=== PATIENT | female | born 1935 | race Caucasian/White ===

== ENCOUNTER 2017-10-20 11:21 | Inpatient (IN) | payer MEDICARE, OTHER ==
--- NOTE | 2017-10-20 11:45 | ER Document Report ---
ED General - General Chief Complaint: Breathing Difficulty Stated Complaint: DIFFICULTY BREATHING Time Seen by Provider: 10/20/17 11:44 Notes: Patient is a 82-year-old female who presents emergency department with a chief complaint of shortness of breath, cough and wheezing since Wednesday. Presents from [facility] urgent care where she had 2 duo nebs, she was ambulated and dropped to 78%. she denies any fevers or chills, denies any chest pain, chest tightness. She denies any history of asthma, COPD, bronchitis. She does have a history of congestive heart failure, hypertension, hyperlipidemia, hypothyroidism. Follows with Dr. Fraser, primary care is Dr. Cordoba. TRAVEL OUTSIDE OF THE [place] IN LAST 30 DAYS: No - Related Data Allergies/Adverse Reactions: rofecoxib [From Vioxx] Allergy (Severe, Verified 10/20/17 11:31) congestive heart failure prednisone [Prednisone] Allergy (Verified 10/20/17 11:31) Past Medical History - Social History Smoking Status: Never Smoker Family History: Reviewed & Not Pertinent - Past Medical History Cardiac Medical History: Reports: Hx Congestive Heart Failure, Hx Hypercholesterolemia, Hx Hypertension - Immunizations Hx Diphtheria, Pertussis, Tetanus Vaccination: Yes Review of Systems - Review of Systems Constitutional: Malaise Cardiovascular: No symptoms reported Respiratory: See HPI Gastrointestinal: No symptoms reported Musculoskeletal: No symptoms reported. denies: Leg swelling, Ankle swelling Neurological/Psychological: No symptoms reported -: Yes All other systems reviewed and negative Physical Exam - Vital signs Vitals: Temp Pulse Resp BP Pulse Ox 99.9 F 85 24 H 124/69 88 L 10/20/17 11:36 10/20/17 11:36 10/20/17 11:36 10/20/17 11:36 10/20/17 11:36 - Notes Notes: PHYSICAL EXAM GENERAL: Alert, interacts well. HEAD: Normocephalic, atraumatic. EYES: Pupils equal, round, and reactive to light. Extraocular movements intact. ENT: Oral mucosa moist, tongue midline. NECK: Full range of motion. Supple. Trachea midline. LUNGS: Diffuse wheezes and rhonchi worse at the left base without evidence of rales. No respiratory distress. HEART: Regular rate and rhythm. No murmurs, gallops, or rubs. ABDOMEN: Soft, nondistended, nontender. No guarding, rebound, or rigidity.. Bowel sounds present in all 4 quadrants. EXTREMITIES: Moves all 4 extremities spontaneously. No edema, radial and dorsalis pedis pulses 2/4 bilaterally. No cyanosis. NEUROLOGICAL: Alert and oriented x4. Normal speech. PSYCH: Normal affect, normal mood. SKIN: Warm, dry, normal turgor. No rashes or lesions noted. Course - Re-evaluation Re-evalutation: 10/20/17 13:15 Patient is an 82-year-old female who is hemodynamically stable, no acute distress and afebrile. Presentation is consistent with pneumonia versus acute respiratory failure due to viral syndrome. Patient to receive nebulizers, IV Solu-Medrol and IV Levaquin and will reassess 10/20/17 14:59 Patient has received multiple DuoNeb nebs as well as Solu-Medrol in the department. She has been ambulated with desaturation to 86% on room air. Patient will be admitted for acute respiratory failure with hypoxia secondary to viral syndrome. Patient has been accepted by Dr. Sarabia to inpatient telemetry - Vital Signs Vital signs: Temp Pulse Resp BP Pulse Ox 99.3 F 85 24 H 124/69 88 L 10/20/17 13:11 10/20/17 11:36 10/20/17 11:36 10/20/17 11:36 10/20/17 11:36 - Laboratory Result Diagrams: 10/20/17 11:48 10/20/17 11:48 Laboratory results interpreted by me: 10/20/17 10/20/17 10/20/17 11:48 11:48 11:48 RBC 3.42 L Hgb 11.0 L Hct 32.2 L Seg Neutrophils % 39.7 L Potassium 3.3 L Chloride 97 L BUN 26 H Est GFR (Non-Af Amer) 57 L AST 40 H NT-Pro-B Natriuret Pep 650 H Urine Protein 10/20/17 12:46 RBC Hgb Hct Seg Neutrophils % Potassium Chloride BUN Est GFR (Non-Af Amer) AST NT-Pro-B Natriuret Pep Urine Protein 30 H - Diagnostic Test Radiology reviewed: Image reviewed, Reports reviewed - EKG Interpretation by Me EKG shows normal: Sinus rhythm Rate: Normal Rhythm: NSR When compared to previous EKG there are: Previous EKG unavailable Discharge - Discharge Clinical Impression: Acute respiratory distress, Viral syndrome, Hypoxia Condition: Stable Disposition: ADMITTED INPATIENT Admitting Provider: Hospitalist - [facility] Admitted: Telemetry
[2017-10-20 12:17] LABS: ABSOLUTE EOSINOPHILS # (AUTO) 0.1 10^3/uL (0.0-0.6); ABSOLUTE LYMPHOCYTES (AUTO) 1.9 10^3/uL (0.5-4.7); ABSOLUTE MONOCYTES (AUTO) 0.6 10^3/uL (0.1-1.4); ABSOLUTE NEUT (AUTO) 1.8 10^3/uL (1.7-8.2); BASOPHILS % (AUTO) 0.6 % (0-2); EOSINOPHILS % (AUTO) 3.1 % (0-6); HEMATOCRIT 32.2 % (36.0-47.0); LYMPHOCYTES % (AUTO) 43.6 % (13-45); MEAN CORPUSCULAR HEMOGLOBIN 32.2 pg (27.0-33.4); MEAN CORPUSCULAR HGB CONC 34.3 g/dL (32.0-36.0); MEAN CORPUSCULAR VOLUME 94 fl (80-97); PLATELET COUNT 175 10^3/uL (150-450); RED BLOOD COUNT 3.42 10^6/uL (3.72-5.28); RED CELL DISTRIBUTION WIDTH 13.8 % (11.5-14.0); SEGMENTED NEUTROPHILS % (AUTO) 39.7 % (42-78); TOTAL CELLS COUNTED % (AUTO) 100 %; WHITE BLOOD COUNT 4.4 10^3/uL (4.0-10.5)
[2017-10-20 12:35] LABS: ALANINE AMINOTRANSFERASE 30 U/L (9-52); ALKALINE PHOSPHATASE 48 U/L (38-126); ANION GAP 12 (5-19); ASPARTATE AMINO TRANSFERASE 40 U/L (14-36); BILIRUBIN,DIRECT 0.4 mg/dL (0.0-0.4); BILIRUBIN,TOTAL 0.4 mg/dL (0.2-1.3); BLOOD UREA NITROGEN 26 mg/dL (7-20); CALCIUM 9.3 mg/dL (8.4-10.2); CARBON DIOXIDE 29 mmol/L (22-30); CHLORIDE 97 mmol/L (98-107); CREATINE KINASE 74 U/L (30-135); GLUCOSE 97 mg/dL (75-110); POTASSIUM 3.3 mmol/L (3.6-5.0); SODIUM 138.2 mmol/L (137-145)
--- NOTE | 2017-10-20 12:41 | RADIOLOGY REPORT (SQ) ---
EXAM DESCRIPTION: CHEST SINGLE VIEW COMPLETED DATE/TIME: 10/20/2017 12:31 pm REASON FOR STUDY: SOB, h/o CHF COMPARISON: August 2011 EXAM PARAMETERS: NUMBER OF VIEWS: One view. TECHNIQUE: Single frontal radiographic view of the chest acquired. RADIATION DOSE: NA LIMITATIONS: Patient has made a shallow inspiration FINDINGS: LUNGS AND PLEURA: Linear densities are identified in the lung bases left greater than righ t which could represent subsegmental atelectasis or scarring. Remaining lung galo are clear. No p leural effusions are identified. MEDIASTINUM AND HILAR STRUCTURES: No masses. Contour normal. HEART AND VASCULAR STRUCTURES: Cardiac silhouette remains enlarged. Tortuous thoracic aorta is again identified. BONES: No acute findings. HARDWARE: None in the chest. OTHER: No other significant finding. IMPRESSION: Linear densities in the lung bases left greater than right which could represent atelect atic changes or scarring. Remaining lung galo are clear. No pleural effusions are identified. Ot her findings as noted above TECHNICAL DOCUMENTATION: JOB ID: [id number] [employer]- All Rights Reserved
[2017-10-20 12:58] LABS: CREATINE KINASE MB 0.45 ng/mL (<4.55); TROPONIN I 0.017 ng/mL
[2017-10-20 13:01] LABS: APPEARANCE,URINE SLIGHTLY-CLOUDY; BILIRUBIN,URINE NEGATIVE (NEGATIVE); COLOR,URINE YELLOW; GLUCOSE, URINE NEGATIVE (NEGATIVE); KETONES,URINE NEGATIVE (NEGATIVE); LEUKOCYTE ESTERASE,URINE NEGATIVE (NEGATIVE); NITRITE,URINE NEGATIVE (NEGATIVE); PROTEIN,URINE 30 mg/dL (NEGATIVE); UROBILINOGEN,URINE NEGATIVE mg/dL (<2.0)
[2017-10-20] MEDS ORDERED: IPRATROPIUM/ALBUTEROL 0.5-2.5 MG/3 ML AMPUL NEB ONE (13:06)
[2017-10-20] MEDS ORDERED: METHYLPREDNISOLONE INJ 125 MG/2 ML SDV IV ONE (13:06)
[2017-10-20] MEDS: ALBUTEROL SULFATE 0.083% NEB 2.5 MG/3 ML AMPUL NEB SCH ×2 (13:12→13:59)
[2017-10-20] MEDS ORDERED: LEVOFLOXACIN 750 MG/D5W RTU 750 MG/150 ML RTUPB IV ONE (13:13)
[2017-10-20] MEDS ORDERED: LEVALBUTEROL HCL NEB 1.25 MG/3 ML AMPUL NEB ONE (14:59)
[2017-10-20] MEDS ORDERED: ACETAMINOPHEN 325 MG TABLET PO PRN (15:00)
[2017-10-20] MEDS ORDERED: ZOLPIDEM TARTRATE 5 MG TABLET PO PRN (15:00)
[2017-10-20] MEDS ORDERED: OXYCODONE-ACETAMINOPHEN 5-325 MG TABLET PO PRN (15:00)
[2017-10-20] MEDS ORDERED: ONDANSETRON HCL INJ/PF 4 MG/2 ML SDV IV PRN (15:00)
[2017-10-20] MEDS ORDERED: HYDROCODONE BIT/HOMATROPINE 5-1.5 MG TABLET PO PRN (15:05)
[2017-10-20] MEDS ORDERED: BENZONATATE 100 MG CAPSULE PO PRN (15:06)
--- NOTE | 2017-10-20 16:00 | PDOC H&P ---
History of Present Illness Admission Date/PCP: TAMARA ROD MD Patient complains of: Cough since Wednesday History of Present Illness: NARA RIVERA is a 82 year old femalePresents to emergency room accompanied by her daughter and complains of having for the most part nonproductive cough which started on Wednesday. Patient states that she took [id number] medications with not much relief. In addition she has been experiencing shortness of breath and pain on her stomach due to the cough. Patient states that she took the flu vaccine and had taken the pneumonia shot. When she was evaluated in the emergency room she was saturating 84% at room air requiring oxygen supplementation. Due to presentation the hospitalist service was contacted and prompted to admit for further management Past Medical History Cardiac Medical History: Reports: Congestive Heart Failure, Hyperlipidema, Hypertension Pulmonary Medical History: Reports: None EENT Medical History: Reports: Other - macular degeneration Neurological Medical History: Reports: None Endocrine Medical History: Reports: None Renal/ Medical History: Reports: None Malignancy Medical History: Reports: None GI Medical History: Reports: None Musculoskeltal Medical History: Reports: None Skin Medical History: Reports: None Psychiatric Medical History: Reports: None Traumatic Medical History: Reports: None Hematology: Reports: None Infectious Medical History: Reports: None Past Surgical History Past Surgical History: Reports: Appendectomy, Knee Replacement, Orthopedic Surgery Social History Information Source: Patient Lives with: Alone Smoking Status: Never Smoker Frequency of Alcohol Use: None Hx Recreational Drug Use: No Drugs: None Hx Prescription Drug Abuse: No Family History Family History: DM Parental Family History Reviewed: Yes Children Family History Reviewed: Yes Sibling(s) Family History Reviewed.: Yes Medication/Allergy Allergies/Adverse Reactions: rofecoxib [From Vioxx] Allergy (Severe, Verified 10/20/17 11:31) congestive heart failure prednisone [Prednisone] Allergy (Verified 10/20/17 11:31) Review of Systems Constitutional: ABSENT: chills, fever(s), night sweats Eyes: ABSENT: visual disturbances Ears: ABSENT: hearing changes Cardiovascular: PRESENT: chest pain, dyspnea on exertion. ABSENT: palpitations Respiratory: PRESENT: cough, dyspnea Gastrointestinal: PRESENT: abdominal pain. ABSENT: nausea, vomiting Musculoskeletal: PRESENT: joint swelling Physical Exam Vital Signs: Temp Pulse Resp BP Pulse Ox 99.3 F 85 24 H 124/69 88 L 10/20/17 13:11 10/20/17 11:36 10/20/17 11:36 10/20/17 11:36 10/20/17 11:36 Intake & Output 10/19/17 10/20/17 10/21/17 06:59 06:59 06:59 Weight 70.6 kg General appearance: PRESENT: cooperative, mild distress, obese Head exam: PRESENT: atraumatic, normocephalic Eye exam: PRESENT: conjunctiva pink, EOMI, PERRLA Mouth exam: PRESENT: moist Neck exam: PRESENT: full ROM. ABSENT: JVD, lymphadenopathy, tenderness Respiratory exam: PRESENT: decreased breath sounds, wheezes Cardiovascular exam: PRESENT: RRR. ABSENT: diastolic murmur, systolic murmur Vascular exam: PRESENT: normal capillary refill GI/Abdominal exam: PRESENT: normal bowel sounds, soft. ABSENT: tenderness Extremities exam: PRESENT: +2 edema Musculoskeletal exam: PRESENT: ambulatory Neurological exam: PRESENT: alert, awake, oriented to person, oriented to place , oriented to time, oriented to situation, CN II-XII grossly intact Psychiatric exam: PRESENT: appropriate affect, normal mood Skin exam: PRESENT: intact, normal color Results Laboratory Results: 10/20/17 11:48 10/20/17 11:48 10/20/17 10/20/17 10/20/17 11:48 11:48 12:46 WBC 4.4 RBC 3.42 L Hgb 11.0 L Hct 32.2 L MCV 94 MCH 32.2 MCHC 34.3 RDW 13.8 Plt Count 175 Seg Neutrophils % 39.7 L Lymphocytes % 43.6 Monocytes % 13.0 Eosinophils % 3.1 Basophils % 0.6 Absolute Neutrophils 1.8 Absolute Lymphocytes 1.9 Absolute Monocytes 0.6 Absolute Eosinophils 0.1 Absolute Basophils 0.0 Sodium 138.2 Potassium 3.3 L Chloride 97 L Carbon Dioxide 29 Anion Gap 12 BUN 26 H Creatinine 0.94 Est GFR ( Amer) > 60 Est GFR (Non-Af Amer) 57 L Glucose 97 Calcium 9.3 Total Bilirubin 0.4 AST 40 H ALT 30 Alkaline Phosphatase 48 Total Protein 7.0 Albumin 4.0 Urine Color YELLOW Urine Appearance SLIGHTLY-CLOUDY Urine pH 8.0 Ur Specific [place] 1.010 Urine Protein 30 H Urine Glucose (UA) NEGATIVE Urine Ketones NEGATIVE Urine Blood NEGATIVE Urine Nitrite NEGATIVE Ur Leukocyte Esterase NEGATIVE Urine WBC (Auto) 3 Urine RBC (Auto) 1 10/20/17 10/20/17 11:48 11:48 Creatine Kinase 74 CK-MB (CK-2) 0.45 Troponin I 0.017 NT-Pro-B Natriuret Pep 650 H Impressions: Chest X-Ray 10/20/17 11:55 IMPRESSION: Linear densities in the lung bases left greater than right which could represent atelectatic changes or scarring. Remaining lung galo are clear. No pleural effusions are identified. Other findings as noted above Assessment & Plan - Diagnosis (1) Acute respiratory failure Qualifiers: Respiratory failure complication: hypoxia Qualified Code(s): J96.01 - Acute respiratory failure with hypoxia Is this a current diagnosis for this admission?: Yes Plan: Will supplement oxygen and will wean off as tolerated will request incentive spirometer (2) Elevated brain natriuretic peptide (BNP) level Is this a current diagnosis for this admission?: Yes Plan: BNP is mildly elevated however due to history of congestive heart failure will order a one-time dose of Lasix IV. Patient also suffers from chronic leg swelling and on the overall does not look to be fluid overloaded but probably suspect elevated longstanding pulmonary pressures (3) Viral syndrome Is this a current diagnosis for this admission?: Yes Plan: Patient will be placed on DuoNeb's, due to C. difficile and Tamiflu (4) Hypokalemia Is this a current diagnosis for this admission?: Yes Plan: Will replace orally and trend - Time Time Spent: 50 to 70 Minutes Medications reviewed and adjusted accordingly: Yes Anticipated discharge: Home Within: within 48 hours - Inpatient Certification Based on my medical assessment, after consideration of the patient's comorbidities, presenting symptoms, or acuity I expect that the services needed warrant INPATIENT care.: Yes I certify that my determination is in accordance with my understanding of Medicare's requirements for reasonable and necessary INPATIENT services [42 CFR 412.3e].: Yes Medical Necessity: Need Close Monitoring Due to Risk of Patient Decompensation - Oxygen supplementation
[2017-10-20] MEDS ORDERED: POTASSIUM CHLORIDE 10 MEQ TABLET.SA PO ONE (17:00)
[2017-10-20] MEDS ORDERED: FUROSEMIDE INJ/PF 20 MG/2 ML SDV IV ONE (17:00)
[2017-10-20] MEDS: OSELTAMIVIR PHOSPHATE 75 MG CAPSULE PO SCH (17:14)
[2017-10-20 17:44] LABS: ARTERIAL BLOOD BASE EXCESS 2.4 mmol/L; ARTERIAL BLOOD FIO2 2L; ARTERIAL BLOOD H2CO3 1.15 mmol/L (1.05-1.35); ARTERIAL BLOOD HCO3 26.3 mmol/L (20-26); ARTERIAL BLOOD O2 SATURATION 90.3 % (94-98); ARTERIAL BLOOD PCO2 38.3 mmHg (35-45); ARTERIAL BLOOD PH 7.46 (7.35-7.45); ARTERIAL BLOOD PO2 55.2 mmHg (80-100); ARTERIAL BLOOD TOTAL CO2 27.5 mmol/L (21-25)
[2017-10-20] MEDS: IPRATROPIUM/ALBUTEROL 0.5-2.5 MG/3 ML AMPUL NEB SCH ×3 (20:00→22:07)
[2017-10-20] MEDS: ALBUTEROL SULFATE 0.083% NEB 2.5 MG/3 ML AMPUL NEB PRN (20:09)
--- NOTE | 2017-10-20 21:23 | EKG REPORT ---
SEVERITY:- ABNORMAL ECG - SINUS RHYTHM VENTRICULAR PREMATURE COMPLEX LEFT BUNDLE BRANCH BLOCK : Confirmed by: Paul Ely 20-Oct-2017 21:22:26
[2017-10-21] MEDS ORDERED: HYDROCODONE/ACETAMINOPHEN 5-325 MG TABLET PO PRN (00:03)
[2017-10-21] MEDS: HEPARIN SOD (PORCINE) 5,000 UNIT/ML 1 ML SYRINGE SUBCUT SCH ×4 (00:39→21:52)
[2017-10-21] MEDS: ZOLPIDEM TARTRATE 5 MG TABLET PO PRN ×2 (01:07→22:10)
[2017-10-21] MEDS: ALBUTEROL SULFATE 0.083% NEB 2.5 MG/3 ML AMPUL NEB PRN (01:27)
[2017-10-21 07:19] LABS: ABSOLUTE MONOCYTES (AUTO) 0.4 10^3/uL (0.1-1.4); ABSOLUTE NEUT (AUTO) 2.5 10^3/uL (1.7-8.2); BASOPHILS % (AUTO) 0.1 % (0-2); HEMATOCRIT 30.1 % (36.0-47.0); HEMOGLOBIN 10.8 g/dL (12.0-15.5); LYMPHOCYTES % (AUTO) 24.7 % (13-45); MEAN CORPUSCULAR HEMOGLOBIN 33.2 pg (27.0-33.4); MEAN CORPUSCULAR HGB CONC 35.8 g/dL (32.0-36.0); MEAN CORPUSCULAR VOLUME 93 fl (80-97); MONOCYTES % (AUTO) 9.6 % (3-13); PLATELET COUNT 173 10^3/uL (150-450); RED BLOOD COUNT 3.24 10^6/uL (3.72-5.28); RED CELL DISTRIBUTION WIDTH 13.6 % (11.5-14.0); SEGMENTED NEUTROPHILS % (AUTO) 65.6 % (42-78); TOTAL CELLS COUNTED % (AUTO) 100 %; WHITE BLOOD COUNT 3.8 10^3/uL (4.0-10.5)
[2017-10-21 07:39] LABS: ANION GAP 14 (5-19); BLOOD UREA NITROGEN 27 mg/dL (7-20); CALCIUM 9.3 mg/dL (8.4-10.2); CARBON DIOXIDE 27 mmol/L (22-30); CHLORIDE 97 mmol/L (98-107); GLUCOSE 206 mg/dL (75-110); MAGNESIUM 1.6 mg/dL (1.6-2.3); POTASSIUM 3.7 mmol/L (3.6-5.0)
[2017-10-21] MEDS ORDERED: BISOPROLOL PO SCH (08:00)
[2017-10-21] MEDS ORDERED: HYDROCHLOROTHIAZIDE PO SCH (08:00)
[2017-10-21] MEDS ORDERED: IPRATROPIUM/ALBUTEROL 0.5-2.5 MG/3 ML AMPUL NEB ONE (09:30)
[2017-10-21] MEDS: HYDROCHLOROTHIAZIDE 25 MG TABLET PO SCH (09:55)
[2017-10-21] MEDS: ATENOLOL 50 MG TABLET PO SCH (09:56)
[2017-10-21] MEDS: DOCUSATE SODIUM 100 MG CAPSULE PO SCH (09:56)
[2017-10-21] MEDS: LEVOTHYROXINE SODIUM 0.025 MG TABLET PO SCH (09:56)
[2017-10-21] MEDS: IPRATROPIUM/ALBUTEROL 0.5-2.5 MG/3 ML AMPUL NEB SCH ×2 (13:48→19:54)
[2017-10-21] MEDS ORDERED: FUROSEMIDE INJ/PF 20 MG/2 ML SDV IV ONE (15:00)
[2017-10-21] MEDS: ATORVASTATIN CALCIUM 80 MG TABLET PO SCH (18:05)
[2017-10-21] MEDS: LISINOPRIL 10 MG TABLET PO SCH (18:05)
[2017-10-21] MEDS: OSELTAMIVIR PHOSPHATE 75 MG CAPSULE PO SCH (18:05)
--- NOTE | 2017-10-21 18:41 | PDOC PROGRESS REPORT ---
Subjective Progress Note for:: 10/21/17 Subjective:: Patient relates that still having shortness of breath and cough. Was not able to sleep last night Review of systems All organ systems evaluated and negative except as in subjective All laboratories and significant diagnostics have been reviewed Reason For Visit: ACUTE RESPIRATORY FAILURE,VIRAL SYNDROME Physical Exam Vital Signs: Temp Pulse Resp BP Pulse Ox 98.6 F 88 18 139/56 H 95 10/21/17 04:00 10/21/17 04:00 10/21/17 04:00 10/21/17 04:00 10/21/17 04:00 Intake & Output 10/20/17 10/21/17 10/22/17 06:59 06:59 06:59 Intake Total 268 Balance 268 Weight 70.1 kg General appearance: PRESENT: no acute distress, cooperative, obese Head exam: PRESENT: atraumatic, normocephalic Eye exam: PRESENT: conjunctiva pink, EOMI, PERRLA Mouth exam: PRESENT: moist Neck exam: PRESENT: full ROM. ABSENT: JVD, lymphadenopathy Respiratory exam: PRESENT: crackles, wheezes Cardiovascular exam: PRESENT: RRR. ABSENT: diastolic murmur, systolic murmur Vascular exam: PRESENT: normal capillary refill GI/Abdominal exam: PRESENT: normal bowel sounds, soft. ABSENT: tenderness Extremities exam: PRESENT: full ROM, +1 edema Musculoskeletal exam: PRESENT: ambulatory Neurological exam: PRESENT: alert, awake, oriented to person, oriented to place , oriented to time, oriented to situation, CN II-XII grossly intact Psychiatric exam: PRESENT: appropriate affect, normal mood Skin exam: PRESENT: intact, normal color Results Laboratory Results: 10/21/17 06:37 10/20/17 10/21/17 16:25 06:37 WBC 3.8 L RBC 3.24 L Hgb 10.8 L Hct 30.1 L MCV 93 MCH 33.2 MCHC 35.8 RDW 13.6 Plt Count 173 Seg Neutrophils % 65.6 Lymphocytes % 24.7 Monocytes % 9.6 Eosinophils % 0.0 Basophils % 0.1 Absolute Neutrophils 2.5 Absolute Lymphocytes 1.0 Absolute Monocytes 0.4 Absolute Eosinophils 0.0 Absolute Basophils 0.0 Carbonic Acid 1.15 HCO3/H2CO3 Ratio 22:1 ABG pH 7.46 H ABG pCO2 38.3 ABG pO2 55.2 L ABG HCO3 26.3 H ABG O2 Saturation 90.3 L ABG Base Excess 2.4 FiO2 2L Impressions: Chest X-Ray 10/20/17 11:55 IMPRESSION: Linear densities in the lung bases left greater than right which could represent atelectatic changes or scarring. Remaining lung galo are clear. No pleural effusions are identified. Other findings as noted above Assessment & Plan - Diagnosis (1) Acute respiratory failure Qualifiers: Respiratory failure complication: hypoxia Qualified Code(s): J96.01 - Acute respiratory failure with hypoxia Is this a current diagnosis for this admission?: Yes Plan: continue oxygen and will wean off as tolerated. Will request again incentive spirometer (2) Elevated brain natriuretic peptide (BNP) level Is this a current diagnosis for this admission?: Yes Plan: BNP is mildly elevated. Will place on Lasix IV twice a day and order an echocardiogram (3) Viral syndrome Is this a current diagnosis for this admission?: Yes Plan: Continue Tamiflu and nebulizer treatments. (4) Hypokalemia Is this a current diagnosis for this admission?: Yes Plan: Replaced and trend since will be getting Lasix IV - Time Time Spent with patient: 15-24 minutes Medications reviewed and adjusted accordingly: Yes Anticipated discharge: Home Within: within 72 hours - Inpatient Certification Based on my medical assessment, after consideration of the patient's comorbidities, presenting symptoms, or acuity I expect that the services needed warrant INPATIENT care.: Yes I certify that my determination is in accordance with my understanding of Medicare's requirements for reasonable and necessary INPATIENT services [42 CFR 412.3e].: Yes Medical Necessity: Need Close Monitoring Due to Risk of Patient Decompensation, Need For Continuous Telemetry Monitoring - IV Lasix
[2017-10-21] MEDS: OLANZAPINE 2.5 MG TABLET PO SCH (21:51)
[2017-10-21] MEDS: FUROSEMIDE INJ/PF 20 MG/2 ML SDV IV SCH (21:51)
[2017-10-21] MEDS: LATANOPROST 0.005% OPH SOLN 2.5 ML OU SCH (21:52)
[2017-10-22] MEDS: LEVOTHYROXINE SODIUM 0.025 MG TABLET PO SCH (06:54)
[2017-10-22 07:52] LABS: ANION GAP 9 (5-19); BLOOD UREA NITROGEN 37 mg/dL (7-20); CALCIUM 9.2 mg/dL (8.4-10.2); CARBON DIOXIDE 33 mmol/L (22-30); CHLORIDE 98 mmol/L (98-107); GLUCOSE 114 mg/dL (75-110); MAGNESIUM 1.7 mg/dL (1.6-2.3); POTASSIUM 3.6 mmol/L (3.6-5.0); SODIUM 139.8 mmol/L (137-145)
[2017-10-22] MEDS: HEPARIN SOD (PORCINE) 5,000 UNIT/ML 1 ML SYRINGE SUBCUT SCH ×3 (09:12→21:48)
[2017-10-22] MEDS: HYDROCHLOROTHIAZIDE 25 MG TABLET PO SCH (09:13)
[2017-10-22] MEDS: ATENOLOL 50 MG TABLET PO SCH (09:13)
[2017-10-22] MEDS: IPRATROPIUM/ALBUTEROL 0.5-2.5 MG/3 ML AMPUL NEB SCH ×3 (09:14→19:37)
[2017-10-22] MEDS: DOCUSATE SODIUM 100 MG CAPSULE PO SCH (10:04)
[2017-10-22] MEDS: FUROSEMIDE INJ/PF 20 MG/2 ML SDV IV SCH (10:04)
[2017-10-22] MEDS: OSELTAMIVIR PHOSPHATE 75 MG CAPSULE PO SCH (17:35)
[2017-10-22] MEDS: ATORVASTATIN CALCIUM 80 MG TABLET PO SCH (17:35)
--- NOTE | 2017-10-22 18:06 | PDOC PROGRESS REPORT ---
Subjective Progress Note for:: 10/22/17 Subjective:: Patient reports that her breathing is getting better Review of systems All organ systems evaluated and negative except as in subjective All laboratories and significant diagnostics have been reviewed Reason For Visit: ACUTE RESPIRATORY FAILURE,VIRAL SYNDROME Physical Exam Vital Signs: Temp Pulse Resp BP Pulse Ox 97.3 F 68 16 110/67 94 10/22/17 08:19 10/22/17 09:14 10/22/17 09:14 10/22/17 08:19 10/22/17 09:14 Intake & Output 10/21/17 10/22/17 10/23/17 06:59 06:59 06:59 Intake Total 268 118 Balance 268 118 Weight 70.1 kg 92.5 kg General appearance: PRESENT: cooperative, severe distress Head exam: PRESENT: atraumatic, normocephalic Eye exam: PRESENT: conjunctiva pink, EOMI, PERRLA Ear exam: PRESENT: normal external ear exam, TM's normal bilaterally Mouth exam: PRESENT: moist Neck exam: PRESENT: full ROM. ABSENT: JVD Respiratory exam: ABSENT: tachypnea, unlabored Cardiovascular exam: PRESENT: RRR. ABSENT: diastolic murmur, systolic murmur Vascular exam: PRESENT: normal capillary refill GI/Abdominal exam: PRESENT: normal bowel sounds, soft. ABSENT: tenderness Extremities exam: PRESENT: full ROM, +1 edema Musculoskeletal exam: PRESENT: ambulatory Neurological exam: PRESENT: alert, awake, oriented to person, oriented to place , oriented to time, oriented to situation, CN II-XII grossly intact Psychiatric exam: PRESENT: appropriate affect, normal mood Skin exam: PRESENT: intact, normal color Results Laboratory Results: 10/21/17 06:37 10/22/17 07:19 10/22/17 07:19 Sodium 139.8 Potassium 3.6 Chloride 98 Carbon Dioxide 33 H Anion Gap 9 BUN 37 H Creatinine 1.33 H Est GFR ( Amer) 46 L Est GFR (Non-Af Amer) 38 L Glucose 114 H Calcium 9.2 Magnesium 1.7 Impressions: Chest X-Ray 10/20/17 11:55 IMPRESSION: Linear densities in the lung bases left greater than right which could represent atelectatic changes or scarring. Remaining lung galo are clear. No pleural effusions are identified. Other findings as noted above Assessment & Plan - Diagnosis (1) Acute respiratory failure Qualifiers: Respiratory failure complication: hypoxia Qualified Code(s): J96.01 - Acute respiratory failure with hypoxia Is this a current diagnosis for this admission?: Yes Plan: There is advised to wean patient off oxygen (2) Elevated brain natriuretic peptide (BNP) level Is this a current diagnosis for this admission?: Yes Plan: BNP is mildly elevated. Echocardiogram results still pending. Will discontinue Lasix since she has mild increase in renal function (3) Viral syndrome Is this a current diagnosis for this admission?: Yes Plan: Continue Tamiflu and nebulizer treatments. (4) Hypokalemia Is this a current diagnosis for this admission?: Yes Plan: Replaced - Time Time Spent with patient: 15-24 minutes Medications reviewed and adjusted accordingly: Yes Anticipated discharge: Home Within: within 24 hours - Inpatient Certification Based on my medical assessment, after consideration of the patient's comorbidities, presenting symptoms, or acuity I expect that the services needed warrant INPATIENT care.: Yes I certify that my determination is in accordance with my understanding of Medicare's requirements for reasonable and necessary INPATIENT services [42 CFR 412.3e].: Yes Medical Necessity: Need Close Monitoring Due to Risk of Patient Decompensation, Need for Nebulizer Therapy and Monitoring of Response
--- NOTE | 2017-10-22 18:18 | XCELERA REPORT ---
[address] [address] Transthoracic Echocardiogram Report Name: NARA RIVERA Age: 82 yrs Gender: Female : 1935 Patient Status: Inpatient Patient Location: [address] [place] [address] Study Date: 10/22/2017 03:28 PM Height: 60 in Weight: 154 lb BSA: 1.7 m2 Procedure: A complete two-dimensional transthoracic echocardiogram was performed (2D, M-mode, spectral and color flow Doppler). The study was technically difficult with many images being suboptimal in quality. Reason For Study: dyspnea Ordering Physician: MIGUEL GIL Performed By: Tania Ramos Interpretation Summary The left ventricular ejection fraction is normal. There is borderline concentric left ventricular hypertrophy. Doppler measurements suggest pseudonormalized left ventricular relaxation, which is associated with grade II/IV or mild to moderate diastolic dysfunction The left ventricle is grossly normal size. Wall motion cannot be accurately commented on, but no definite regional wall motion abnormalities noted. The right ventricle is mildly dilated. The right ventricular systolic function is normal. The left atrial size is normal. The right atrium is mildly dilated. There is no mitral valve stenosis. There is a trace amount of mitral regurgitation No aortic regurgitation is present. There is no aortic valve stenosis There is a trace or physiologic amount of tricuspid regurgitation Tricuspid regurgitation jet envelope not well defined to measure RV systolic pressure accurately. The aortic root is not well visualized. The inferior vena cava appeared normal and decreased > 50% with respiration (RAP 5-10 mmHg) There is no pericardial effusion. MMode/2D Measurements & Calculations RVDd: 2.0 cm LVIDd: 3.8 cm FS: 16.4 % Ao root diam: 3.0 cm IVSd: 0.85 cm LVIDs: 3.1 cm EDV(Teich): 60.4 ml LVPWd: 0.83 cm ESV(Teich): 39.3 ml Ao root area: 7.2 cm2 EF(Teich): 35.0 % Doppler Measurements & Calculations MV E max heather: MV dec slope: Ao V2 max: LV V1 max P.3 cm/sec 171.5 cm/sec 5.3 mmHg MV A max heather: 310.9 cm/sec2 Ao max PG: LV V1 max: 129.8 cm/sec MV dec time: 11.8 mmHg 115.3 cm/sec MV E/A: 0.66 0.27 sec PA V2 max: TR max heather: 78.4 cm/sec 238.7 cm/sec PA max P.5 mmHgTR max P.8 mmHg Left Ventricle The left ventricle is grossly normal size. There is borderline concentric left ventricular hypertrophy. The left ventricular ejection fraction is normal. Doppler measurements suggest pseudonormalized left ventricular relaxation, which is associated with grade II/IV or mild to moderate diastolic dysfunction. Wall motion cannot be accurately commented on, but no definite regional wall motion abnormalities noted. Right Ventricle The right ventricle is mildly dilated. There is normal right ventricular wall thickness. The right ventricular systolic function is normal. Atria The right atrium is mildly dilated. The left atrial size is normal. Interarterial septum not well visualized and not well dopplered. Cannot comment on ASD/PFO presence. Mitral Valve The mitral valve is grossly normal. There is no mitral valve stenosis. There is a trace amount of mitral regurgitation. Aortic Valve The aortic valve is sclerotic, but shows no functional abnormality. There is no aortic valve stenosis. No aortic regurgitation is present. Tricuspid Valve The tricuspid valve is not well visualized, but is grossly normal. There is no tricuspid stenosis. There is a trace or physiologic amount of tricuspid regurgitation. Tricuspid regurgitation jet envelope not well defined to measure RV systolic pressure accurately. Pulmonic Valve The pulmonic valve is not well visualized. Great Vessels The aortic root is not well visualized. The inferior vena cava appeared normal and decreased > 50% with respiration (RAP 5-10 mmHg). Effusions There is no pericardial effusion. : MIGUEL GIL > Paul Ely
[2017-10-22] MEDS: LISINOPRIL 10 MG TABLET PO SCH (18:45)
[2017-10-22] MEDS: OLANZAPINE 2.5 MG TABLET PO SCH (21:49)
[2017-10-22] MEDS: ZOLPIDEM TARTRATE 5 MG TABLET PO PRN (21:49)
[2017-10-22] MEDS: LATANOPROST 0.005% OPH SOLN 2.5 ML OU SCH (21:50)
[2017-10-23] MEDS: LEVOTHYROXINE SODIUM 0.025 MG TABLET PO SCH (06:20)
[2017-10-23] MEDS: HEPARIN SOD (PORCINE) 5,000 UNIT/ML 1 ML SYRINGE SUBCUT SCH ×2 (06:22→14:30)
[2017-10-23 07:29] LABS: ABSOLUTE EOSINOPHILS # (AUTO) 0.1 10^3/uL (0.0-0.6); ABSOLUTE LYMPHOCYTES (AUTO) 5.7 10^3/uL (0.5-4.7); ABSOLUTE MONOCYTES (AUTO) 1.1 10^3/uL (0.1-1.4); ABSOLUTE NEUT (AUTO) 4.1 10^3/uL (1.7-8.2); BASOPHILS % (AUTO) 0.2 % (0-2); EOSINOPHILS % (AUTO) 0.7 % (0-6); HEMATOCRIT 35.5 % (36.0-47.0); LYMPHOCYTES % (AUTO) 51.4 % (13-45); MEAN CORPUSCULAR HEMOGLOBIN 31.9 pg (27.0-33.4); MEAN CORPUSCULAR HGB CONC 33.7 g/dL (32.0-36.0); MEAN CORPUSCULAR VOLUME 95 fl (80-97); MONOCYTES % (AUTO) 10.1 % (3-13); PLATELET COUNT 234 10^3/uL (150-450); RED BLOOD COUNT 3.76 10^6/uL (3.72-5.28); SEGMENTED NEUTROPHILS % (AUTO) 37.6 % (42-78); TOTAL CELLS COUNTED % (AUTO) 100 %
[2017-10-23 07:40] LABS: ANION GAP 13 (5-19); BLOOD UREA NITROGEN 46 mg/dL (7-20); CALCIUM 9.4 mg/dL (8.4-10.2); CARBON DIOXIDE 30 mmol/L (22-30); CHLORIDE 93 mmol/L (98-107); GLUCOSE 123 mg/dL (75-110); POTASSIUM 4.3 mmol/L (3.6-5.0); SODIUM 136.2 mmol/L (137-145)
[2017-10-23] MEDS: IPRATROPIUM/ALBUTEROL 0.5-2.5 MG/3 ML AMPUL NEB SCH ×3 (07:43→20:02)
[2017-10-23] MEDS: ATENOLOL 50 MG TABLET PO SCH (09:08)
[2017-10-23] MEDS: DOCUSATE SODIUM 100 MG CAPSULE PO SCH (09:08)
[2017-10-23] MEDS: HYDROCHLOROTHIAZIDE 25 MG TABLET PO SCH (09:08)
--- NOTE | 2017-10-23 11:43 | RADIOLOGY REPORT (SQ) ---
EXAM DESCRIPTION: CHEST PA/LAT COMPLETED DATE/TIME: 10/23/2017 11:26 am REASON FOR STUDY: Pneumonia COMPARISON: 10/20/2017. EXAM PARAMETERS: NUMBER OF VIEWS: two views TECHNIQUE: Digital Frontal and Lateral radiographic views of the chest acquired. RADIATION DOSE: NA LIMITATIONS: none FINDINGS: LUNGS AND PLEURA: Streaky linear density in the left lung base unchanged. Mild interstiti al prominence throughout the lungs. No pleural effusion or pneumothorax. MEDIASTINUM AND HILAR STRUCTURES: No masses or contour abnormalities. HEART AND VASCULAR STRUCTURES: Heart normal size. No evidence for failure. BONES: No acute findings. Degenerative changes in the spine. HARDWARE: None in the chest. OTHER: No other significant finding. IMPRESSION: STREAKY LINEAR DENSITY IN THE LEFT LUNG BASE, UNCHANGED. TECHNICAL DOCUMENTATION: JOB ID: [id number] [employer]- All Rights Reserved
[2017-10-23 13:20] LABS: MAGNESIUM 1.8 mg/dL (1.6-2.3); PHOSPHORUS 5.5 mg/dL (2.5-4.5)
[2017-10-23] MEDS: NORMAL SALINE 1000 ML 1,000 ML IV PRN (14:30)
--- NOTE | 2017-10-23 15:52 | PDOC PROGRESS REPORT ---
Subjective Progress Note for:: 10/23/17 Subjective:: 82-year-old female past medical history of Hyperlipidemia Hypertension CHF Macular degeneration Hypothyroidism Presented to the hospital with dry cough that started 5 days prior to admission. She was diagnosed with acute viral syndrome acute diastolic congestive heart failure exacerbation. The patient was started Tamiflu and she was also diuresed with IV Lasix. Her creatinine has been trending up. Lisinopril will be stopped. Lasix was stopped. She will be given gentle IV fluids. Reason For Visit: ACUTE RESPIRATORY FAILURE,VIRAL SYNDROME Physical Exam Vital Signs: Temp Pulse Resp BP Pulse Ox 97.3 F 70 18 111/61 98 10/23/17 07:36 10/23/17 07:43 10/23/17 07:43 10/23/17 07:36 10/23/17 07:36 Intake & Output 10/22/17 10/23/17 10/24/17 06:59 06:59 06:59 Intake Total 118 560 Balance 118 560 Weight 92.5 kg 95.2 kg Additional comments: Elderly female sitting in bed not in acute distress Lungs: Bibasilar crackles no wheezing heard normal respiratory effort Cardiac: S1-S2 regular no murmurs heard no peripheral edema no cyanosis no calf tenderness Abdomen: Soft, no focal tenderness normal bowel sounds Skin: Warm and dry Results Laboratory Results: 10/23/17 06:57 10/23/17 06:57 10/23/17 10/23/17 06:57 06:57 WBC 11.0 H D RBC 3.76 Hgb 12.0 Hct 35.5 L MCV 95 MCH 31.9 MCHC 33.7 RDW 14.0 Plt Count 234 Seg Neutrophils % 37.6 L Lymphocytes % 51.4 H Monocytes % 10.1 Eosinophils % 0.7 Basophils % 0.2 Absolute Neutrophils 4.1 Absolute Lymphocytes 5.7 H Absolute Monocytes 1.1 Absolute Eosinophils 0.1 Absolute Basophils 0.0 Sodium 136.2 L Potassium 4.3 Chloride 93 L Carbon Dioxide 30 Anion Gap 13 BUN 46 H Creatinine 1.58 H Est GFR ( Amer) 38 L Est GFR (Non-Af Amer) 31 L Glucose 123 H Calcium 9.4 Impressions: Chest X-Ray 10/20/17 11:55 IMPRESSION: Linear densities in the lung bases left greater than right which could represent atelectatic changes or scarring. Remaining lung galo are clear. No pleural effusions are identified. Other findings as noted above Assessment & Plan - Diagnosis (3) Hypertension Is this a current diagnosis for this admission?: Yes Plan: On atenolol. Stop lisinopril due to elevated creatinine. (5) Viral syndrome Is this a current diagnosis for this admission?: Yes Plan: Day 4 of Tamiflu (6) ARF (acute renal failure) Is this a current diagnosis for this admission?: Yes Plan: Stop lisinopril. Gentle IV fluids - Time Time Spent with patient: 35 or more minutes
[2017-10-23] MEDS: OSELTAMIVIR PHOSPHATE 75 MG CAPSULE PO SCH (17:26)
[2017-10-23] MEDS: ATORVASTATIN CALCIUM 80 MG TABLET PO SCH (17:26)
[2017-10-23] MEDS ORDERED: TEMAZEPAM 7.5 MG CAPSULE PO SCH (22:00)
[2017-10-23] MEDS: LATANOPROST 0.005% OPH SOLN 2.5 ML OU SCH (22:18)
[2017-10-24] MEDS: HEPARIN SOD (PORCINE) 5,000 UNIT/ML 1 ML SYRINGE SUBCUT SCH ×2 (00:48→06:10)
[2017-10-24] MEDS: NORMAL SALINE 1000 ML 1,000 ML IV PRN (01:08)
[2017-10-24] MEDS: LEVOTHYROXINE SODIUM 0.025 MG TABLET PO SCH (06:03)
[2017-10-24] MEDS: ATENOLOL 50 MG TABLET PO SCH (08:05)
[2017-10-24 08:16] LABS: ANION GAP 11 (5-19); BLOOD UREA NITROGEN 35 mg/dL (7-20); CARBON DIOXIDE 26 mmol/L (22-30); CHLORIDE 104 mmol/L (98-107); GLUCOSE 122 mg/dL (75-110); POTASSIUM 3.4 mmol/L (3.6-5.0); SODIUM 140.6 mmol/L (137-145)
[2017-10-24] MEDS: IPRATROPIUM/ALBUTEROL 0.5-2.5 MG/3 ML AMPUL NEB SCH (08:18)
[2017-10-24] MEDS: DOCUSATE SODIUM 100 MG CAPSULE PO SCH (09:45)
--- NOTE | 2017-10-24 10:25 | PDOC DISCHARGE SUMMARY ---
General - Admit/Disc Date/PCP Admission Date/Primary Care Provider: 10/20/17 15:06 TAMARA ROD MD Discharge Date: 10/24/17 - Discharge Diagnosis (3) Hypertension Is this a current diagnosis for this admission?: Yes (5) Viral syndrome Is this a current diagnosis for this admission?: Yes (6) ARF (acute renal failure) Is this a current diagnosis for this admission?: Yes - Additional Information Prescriptions: Oseltamivir Phosphate [Tamiflu 75 mg Capsule] 75 mg PO QPM 2 Days #3 capsule Home Medications: Bisoprolol/Hydrochlorothiazide [Ziac 5-6.25 mg Tablet] 2 tab PO QAM 10/20/17 Ergocalciferol (Vitamin D2) [Vitamin D2] 2,000 unit PO QAM 10/20/17 Eszopiclone [Lunesta] 3 mg PO HSP PRN 10/20/17 Hydrocodone/Acetaminophen [Frierson 5-325 Tablet] 0.5 tab PO QIDP PRN 10/20/17 Latanoprost [Xalatan] 1 drop OU QHS 10/20/17 Levothyroxine Sodium [Synthroid] 62.5 mcg PO Q6AM 10/20/17 Lisinopril [Zestril] 40 mg PO QPM 10/20/17 Rosuvastatin Calcium [Crestor] 40 mg PO QPM 10/20/17 Oseltamivir Phosphate [Tamiflu 75 mg Capsule] 75 mg PO QPM 2 Days #3 capsule 07/31 History of Present Illness History of Present Illness: 82-year-old female past medical history of Hyperlipidemia Hypertension CHF Macular degeneration Hypothyroidism Presented to the hospital with dry cough that started 5 days prior to admission. She was diagnosed with acute viral syndrome acute diastolic congestive heart failure exacerbation. The patient was started Tamiflu and she was also diuresed with IV Lasix. Her creatinine started trending up and diuretics were held. She was given one bag on IV fluids and Creatinine came back to normal. The patient reported chronic insomnia and has tried many different medications with no relief in the past. This will have to be addressed by her primary care provider. Hospital Course Hospital Course: She is currently doing well and is stable for discharge. She is to complete a course of Tamiflu. Physical Exam Vital Signs: Temp Pulse Resp BP Pulse Ox 97.7 F 76 18 111/56 L 99 10/24/17 07:16 10/24/17 07:16 10/24/17 07:16 10/24/17 07:16 10/24/17 07:16 Intake & Output 10/23/17 10/24/17 10/25/17 06:59 06:59 06:59 Intake Total 560 300 Balance 560 300 Weight 95.2 kg 98.5 kg General appearance: PRESENT: no acute distress Head exam: PRESENT: normocephalic Ear exam: PRESENT: normal external ear exam Neck exam: ABSENT: tenderness, tracheal deviation Respiratory exam: PRESENT: clear to auscultation sidney, unlabored GI/Abdominal exam: PRESENT: normal bowel sounds, soft. ABSENT: tenderness Results Laboratory Results: 10/23/17 06:57 10/24/17 07:21 10/23/17 10/24/17 06:57 07:21 Sodium 140.6 Potassium 3.4 L Chloride 104 Carbon Dioxide 26 Anion Gap 11 BUN 35 H Creatinine 1.05 Est GFR ( Amer) > 60 Est GFR (Non-Af Amer) 50 L Glucose 122 H Calcium 9.0 Phosphorus 5.5 H Magnesium 1.8 10/23/17 06:57 NT-Pro-B Natriuret Pep 347 Impressions: Chest X-Ray 10/23/17 00:00 IMPRESSION: STREAKY LINEAR DENSITY IN THE LEFT LUNG BASE, UNCHANGED. Qualifiers PATEINT BEING DISCHARGED WITH ANY OF THE FOLLOWING DIAGNOSIS?: No Plan Discharge Plan: Follow-up with primary care physician in 1 week Time Spent: Greater than 30 Minutes
[2017-10-24] MEDS ORDERED: POTASSIUM CHLORIDE 10 MEQ TABLET.SA PO ONE (12:00)
[2017-10-24 13:21] VITALS: BP 109/40
== END 2017-10-24 13:22 | disposition home or self-care (01) | DRG 865 ==
LOC: ER 11:21 → EH 15:06 → 2N 22:33
PROVIDERS: ADMIT Emergency Medicine; ATTEND Emergency Medicine
PROC: 3E0F73Z Introduction of Anti-inflammatory into Respiratory Tract, Via Natural or Artificial Opening (ICD-10-PCS; principal; 2017-10-21)
DX: B34.9 Viral infection, unspecified (principal); J96.01 Acute respiratory failure with hypoxia; I50.33 Acute on chronic diastolic (congestive) heart failure; N17.9 Acute kidney failure, unspecified; E87.6 Hypokalemia; E78.5 Hyperlipidemia, unspecified; H35.30 Unspecified macular degeneration; E03.9 Hypothyroidism, unspecified; R79.89 Other specified abnormal findings of blood chemistry; I11.0 Hypertensive heart disease with heart failure; F51.04 Psychophysiologic insomnia; Z90.49 Acquired absence of other specified parts of digestive tract; Z96.659 Presence of unspecified artificial knee joint; Z88.8 Allergy status to other drugs, medicaments and biological substances
CPT/HCPCS: 36415; 71045; 71046; 80048; 80053; 81001; 82550; 82553; 82803; 83735; 83880; 84100; 84484; 85025; 87040; 93005; 93010; 93306; 94640; 94799; 96365; 96375; 99285; J1644; J1940; J1956; J2930; J3490; J7030; J7620

== ENCOUNTER 2018-03-09 09:16 | Observation (INO) | payer MEDICARE, OTHER ==
[2018-03-09 10:08] LABS: ABSOLUTE BASOPHILS # (AUTO) 0.1 10^3/uL (0.0-0.2); ABSOLUTE EOSINOPHILS # (AUTO) 0.2 10^3/uL (0.0-0.6); ABSOLUTE LYMPHOCYTES (AUTO) 2.2 10^3/uL (0.5-4.7); ABSOLUTE MONOCYTES (AUTO) 0.6 10^3/uL (0.1-1.4); ABSOLUTE NEUT (AUTO) 4.1 10^3/uL (1.7-8.2); BASOPHILS % (AUTO) 0.7 % (0-2); EOSINOPHILS % (AUTO) 2.8 % (0-6); HEMATOCRIT 36.5 % (36.0-47.0); HEMOGLOBIN 12.5 g/dL (12.0-15.5); LYMPHOCYTES % (AUTO) 30.5 % (13-45); MEAN CORPUSCULAR HEMOGLOBIN 32.3 pg (27.0-33.4); MEAN CORPUSCULAR HGB CONC 34.3 g/dL (32.0-36.0); MEAN CORPUSCULAR VOLUME 94 fl (80-97); MONOCYTES % (AUTO) 8.7 % (3-13); PLATELET COUNT 225 10^3/uL (150-450); RED BLOOD COUNT 3.88 10^6/uL (3.72-5.28); RED CELL DISTRIBUTION WIDTH 13.5 % (11.5-14.0); SEGMENTED NEUTROPHILS % (AUTO) 57.3 % (42-78); TOTAL CELLS COUNTED % (AUTO) 100 %; WHITE BLOOD COUNT 7.2 10^3/uL (4.0-10.5)
[2018-03-09 10:25] LABS: ALANINE AMINOTRANSFERASE 23 U/L (9-52); ALBUMIN 4.6 g/dL (3.5-5.0); ALKALINE PHOSPHATASE 54 U/L (38-126); ANION GAP 12 (5-19); ASPARTATE AMINO TRANSFERASE 21 U/L (14-36); BILIRUBIN,DIRECT 0.3 mg/dL (0.0-0.4); BILIRUBIN,TOTAL 0.6 mg/dL (0.2-1.3); BLOOD UREA NITROGEN 28 mg/dL (7-20); CALCIUM 9.6 mg/dL (8.4-10.2); CARBON DIOXIDE 26 mmol/L (22-30); CHLORIDE 99 mmol/L (98-107); CREATINE KINASE 77 U/L (30-135); GLUCOSE 123 mg/dL (75-110); POTASSIUM 4.9 mmol/L (3.6-5.0); SODIUM 136.7 mmol/L (137-145); TOTAL PROTEIN 7.5 g/dL (6.3-8.2)
[2018-03-09 10:37] LABS: CREATINE KINASE MB 1.25 ng/mL (<4.55)
[2018-03-09 10:41] LABS: TROPONIN I 0.05 ng/mL
[2018-03-09 10:53] LABS: APPEARANCE,URINE CLEAR; BILIRUBIN,URINE NEGATIVE (NEGATIVE); COLOR,URINE STRAW; GLUCOSE, URINE NEGATIVE (NEGATIVE); KETONES,URINE NEGATIVE (NEGATIVE); LEUKOCYTE ESTERASE,URINE NEGATIVE (NEGATIVE); NITRITE,URINE NEGATIVE (NEGATIVE); PROTEIN,URINE NEGATIVE (NEGATIVE); URINE SPECIFIC GRAVITY 1.005; UROBILINOGEN,URINE NEGATIVE mg/dL (<2.0)
--- NOTE | 2018-03-09 11:51 | ER Document Report ---
ED General - General Information source: Patient TRAVEL OUTSIDE OF THE [place] IN LAST 30 DAYS: No <JOSY KILPATRICK - Last Filed: 03/09/18 15:04> <RD DAWN - Last Filed: 03/13/18 15:16> - General Chief Complaint: Dizziness Stated Complaint: DIZZINESS,WEAKNESS Time Seen by Provider: 03/09/18 11:12 Notes: Patient is an 82-year-old female who presents to the emergency department today with complaints of dizziness with associated generalized weakness. Patient states she was started on antibiotics approximately 2 weeks ago for a sinus infection however she did not finish taking the medications because she thought that was what was making her feel "run down". Patient does mention she has not been drinking enough fluids recently because she "just does not feel like it". Patient states she has had a cough and a headache as well but denies the usage of blood thinners, vomiting, falls, chest pain, history of FL/CVA, or abdominal pain. (JOSY KILPATRICK) - Related Data Allergies/Adverse Reactions: rofecoxib [From Vioxx] Allergy (Severe, Verified 10/20/17 11:31) congestive heart failure Past Medical History - General Information source: Patient, [facility] Records - Social History Smoking Status: Former Smoker Cigarette use (# per day): No Chew tobacco use (# tins/day): No Frequency of alcohol use: None Drug Abuse: None Lives with: Family Family History: Reviewed & Not Pertinent Patient has suicidal ideation: No Patient has homicidal ideation: No - Past Medical History Cardiac Medical History: Reports: Hx Congestive Heart Failure, Hx Hypercholesterolemia, Hx Hypertension Renal/ Medical History: Denies: Hx Peritoneal Dialysis Past Surgical History: Reports: Hx Appendectomy, Hx Orthopedic Surgery - Immunizations Hx Diphtheria, Pertussis, Tetanus Vaccination: Yes Hx Pneumococcal Vaccination: 10/14/16 <JOSY KILPATRICK - Last Filed: 03/09/18 15:04> Review of Systems - Review of Systems Constitutional: See HPI, Weakness - Generalized EENT: No symptoms reported Cardiovascular: See HPI, Dizziness. denies: Chest pain Respiratory: See HPI, Cough Gastrointestinal: denies: Abdominal pain, Vomiting Genitourinary: No symptoms reported Female Genitourinary: No symptoms reported Musculoskeletal: No symptoms reported Skin: No symptoms reported Hematologic/Lymphatic: No symptoms reported Neurological/Psychological: No symptoms reported -: Yes All other systems reviewed and negative <JOSY KILPATRICK - Last Filed: 03/09/18 15:04> Physical Exam <JOSY KILPATRICK - Last Filed: 03/09/18 15:04> <NEREYDARD - Last Filed: 03/13/18 15:16> - Vital signs Vitals: Temp Pulse Resp BP Pulse Ox 98.4 F 69 18 158/89 H 96 03/09/18 09:33 03/09/18 09:33 03/09/18 09:33 03/09/18 09:33 03/09/18 09:33 - Notes Notes: Physical Exam: General: Alert, appears well. HEENT: Normocephalic. Atraumatic. PERRL. Extraocular movements intact. Oropharynx clear. Mildly dry mucous membranes. TMs are clear bilaterally. Neck: Supple. Non-tender. Respiratory: No respiratory distress. Clear and equal breath sounds bilaterally. Cardiovascular: Regular rate and rhythm. Abdominal: Normal Inspection. Non-tender. No distension. Normal Bowel Sounds. Back: Non-tender. No deformity or step off. Extremities: Moves all four extremities. Upper extremities: Normal inspection. Normal ROM. Lower extremities: Normal inspection. No edema. Normal ROM. Neurological: Normal cognition. AAOx4. Normal speech. Psychological: Normal affect. Normal Mood. Skin: Warm. Dry. Normal color. (JOSY KILPATRICK) Course - Laboratory Result Diagrams: 03/09/18 09:57 03/09/18 09:57 <JOSY KILPATRICK - Last Filed: 03/09/18 15:04> - Laboratory Result Diagrams: 03/09/18 09:57 03/10/18 06:09 - Diagnostic Test Radiology reviewed: Reports reviewed - NAD - EKG Interpretation by Fl EKG shows normal: Sinus rhythm Rate: Normal Vail/QRS: LBBB When compared to previous EKG there are: No significant change <RD DAWN Edy - Last Filed: 03/13/18 15:16> - Re-evaluation Re-evalutation: 03/09/18 15:33 Patient workup shows labs within normal limits nonsignificant other than mildly elevated troponin it is equivocal with a 0.05 then increased to 0.076. Will admit patient for further evaluation. Aspirin provided patient currently chest pain-free. Discussed case with hospitalist will defer Lovenox at this time as patient is chest pain-free (RD DAWN) - Vital Signs Vital signs: Temp Pulse Resp BP Pulse Ox 97.8 F 64 16 110/73 100 03/10/18 16:21 03/10/18 16:21 03/10/18 16:21 03/10/18 16:21 03/10/18 16:21 - Laboratory Laboratory results interpreted by me: 03/09/18 09:57 Sodium 136.7 L BUN 28 H Est GFR ( Amer) 56 L Est GFR (Non-Af Amer) 46 L Glucose 123 H - EKG Interpretation by Me Additional EKG results interpreted by me: 1358 repeat EKG Rate 65, NSR, LBBB, no change from previous (RD DAWN) Discharge <JOSY KILPATRICK - Last Filed: 03/09/18 15:04> - Discharge Admitting Provider: [facility] Unit Admitted: Telemetry <RD DAWN - Last Filed: 03/13/18 15:16> - Discharge Clinical Impression: Vertigo Fatigue Qualifiers: Fatigue type: unspecified Qualified Code(s): R53.83 - Other fatigue Condition: Fair Disposition: ADMITTED OBSERVATION Scribe Attestation: 03/13/18 15:16 I personally performed the services described documentation, reviewed and edited the documentation which was dictated to describe my presence, and it accurately records my words and actions. (RD DAWN) Scribe Documentation - Scribe Written by Scribe:: Maxx Ch, 03/09/2018 0508 acting as scribe for :: Nereyda <JOSY KILPATRICK - Last Filed: 03/09/18 15:04>
--- NOTE | 2018-03-09 12:40 | RADIOLOGY REPORT (SQ) ---
EXAM DESCRIPTION: CT HEAD WITHOUT COMPLETED DATE/TIME: 03/09/2018 12:20 pm REASON FOR STUDY: dizzy COMPARISON: None. TECHNIQUE: Axial images acquired through the brain without intravenous contrast. Images reviewed wi th bone, brain and subdural windows. Additional sagittal and coronal reconstructions were generated. Images stored on PACS. All CT scanners at this facility use dose modulation, iterative reconstruction, and/or weight based d osing when appropriate to reduce radiation dose to as low as reasonably achievable (ALARA). [facility]: Dose Right [facility]: CareDose [facility]: Dose Right [facility]: Teradose 4D [facility]: [employer] RADIATION DOSE: CT Rad equipment meets quality standard of care and radiation dose reduction techniq ues were employed. CTDIvol: 53.2 mGy. DLP: 964 mGy-cm. mGy. LIMITATIONS: None. FINDINGS: VENTRICLES: Normal size and contour. CEREBRUM: No masses. No hemorrhage. No midline shift. No evidence for acute infarction. Normal gra y/white matter differentiation. No areas of low density in the white matter. CEREBELLUM: No masses. No hemorrhage. No alteration of density. No evidence for acute infarction. EXTRAAXIAL SPACES: No fluid collections. No masses. ORBITS AND GLOBE: No intra- or extraconal masses. Normal contour of globe without masses. CALVARIUM: No fracture. PARANASAL SINUSES: No fluid or mucosal thickening. SOFT TISSUES: No mass or hematoma. OTHER: No other significant finding. IMPRESSION: NORMAL BRAIN CT WITHOUT CONTRAST. EVIDENCE OF ACUTE STROKE: NO. COMMENT: Quality ID # [id number]: Final reports with documentation of one or more dose reduction techniques (e.g., Automated exposure control, adjustment of the mA and/or kV according to patient size, use of iterative reconstruction technique) TECHNICAL DOCUMENTATION: JOB ID: [id number] [employer]- All Rights Reserved Reading location - IP/workstation name: [email or web address]
--- NOTE | 2018-03-09 12:43 | RADIOLOGY REPORT (SQ) ---
EXAM DESCRIPTION: CHEST 2 VIEWS COMPLETED DATE/TIME: 03/09/2018 12:14 pm REASON FOR STUDY: cough COMPARISON: 10/23/2017 EXAM PARAMETERS: NUMBER OF VIEWS: two views TECHNIQUE: Digital Frontal and Lateral radiographic views of the chest acquired. RADIATION DOSE: NA LIMITATIONS: none FINDINGS: LUNGS AND PLEURA: Chronic recurrent linear opacities at the left base. Right lung is teresita r. MEDIASTINUM AND HILAR STRUCTURES: No masses or contour abnormalities. HEART AND VASCULAR STRUCTURES: Heart normal size. No evidence for failure. BONES: No acute findings. HARDWARE: None in the chest. OTHER: No other significant finding. IMPRESSION: Chronic or recurrent linear opacities at the left base. TECHNICAL DOCUMENTATION: JOB ID: [id number] [employer]- All Rights Reserved Reading location - IP/workstation name: [email or web address]
[2018-03-09] MEDS ORDERED: RINGERS SOLUTION,LACTATED 1,000 ML IV ONE (13:41)
[2018-03-09] MEDS ORDERED: ASPIRIN 81 MG TABLET, CHEWABLE PO ONE (15:44)
[2018-03-09] MEDS ORDERED: PROCHLORPERAZINE EDISYLATE INJ 10 MG/2 ML VIAL IV ONE (15:45)
[2018-03-09] MEDS ORDERED: ACETAMINOPHEN 325 MG TABLET PO PRN (16:07)
--- NOTE | 2018-03-09 16:45 | PDOC H&P ---
History of Present Illness Admission Date/PCP: 03/09/18 15:53 TAMARA ROD MD History of Present Illness: NARA RIVERA is a 82 year old female patient who looks younger than her stated age presents with chief complaint of generalized body weakness, dizziness and low energy. She does not have any constitutional symptoms in the form of fever, chills, chest pain, palpitation, diaphoresis. She denies headache. Patient has chronic long-standing insomnia. 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 No orthopnea or paroxysmal nocturnal dyspnea. Her blood work is unremarkable except for mildly elevated troponin. Dr. Fraser consulted by ER attending and he does not feel patient has non-STEMI. Past Medical History Cardiac Medical History: Reports: Hyperlipidema, Hypertension Endocrine Medical History: Reports: Diabetes Mellitus Type 2, Hypothyroidism Past Surgical History Past Surgical History: Reports: Appendectomy, Orthopedic Surgery Social History Lives with: Family Smoking Status: Former Smoker Frequency of Alcohol Use: None Hx Recreational Drug Use: No Drugs: None Hx Prescription Drug Abuse: No - Advance Directive Resuscitation Status: Full Code Family History Family History: Reviewed & Not Pertinent, Hypertension Parental Family History Reviewed: Yes Children Family History Reviewed: Yes Sibling(s) Family History Reviewed.: Yes Medication/Allergy Allergies/Adverse Reactions: rofecoxib [From Vioxx] Allergy (Severe, Verified 10/20/17 11:31) congestive heart failure Review of Systems Constitutional: PRESENT: as per HPI, weakness Ears: PRESENT: as per HPI Cardiovascular: PRESENT: as per HPI Respiratory: PRESENT: as per HPI Gastrointestinal: PRESENT: as per HPI Neurological: PRESENT: as per HPI Physical Exam Vital Signs: Temp Pulse Resp BP Pulse Ox 98.3 F 69 15 160/69 H 98 03/09/18 16:00 03/09/18 09:33 03/09/18 14:13 03/09/18 14:13 03/09/18 14:13 General appearance: PRESENT: no acute distress, well-developed, well-nourished Head exam: PRESENT: atraumatic, normocephalic Eye exam: PRESENT: conjunctiva pink, EOMI, PERRLA. ABSENT: scleral icterus Ear exam: PRESENT: normal external ear exam Mouth exam: PRESENT: moist, tongue midline Neck exam: ABSENT: carotid bruit, JVD, lymphadenopathy, thyromegaly Respiratory exam: PRESENT: clear to auscultation sidney. ABSENT: rales, rhonchi, wheezes Cardiovascular exam: PRESENT: RRR. ABSENT: diastolic murmur, rubs, systolic murmur Pulses: PRESENT: normal dorsalis pedis pul Vascular exam: PRESENT: normal capillary refill GI/Abdominal exam: PRESENT: normal bowel sounds, soft. ABSENT: distended, guarding, mass, organolmegaly, rebound, tenderness Rectal exam: PRESENT: deferred Extremities exam: PRESENT: full ROM. ABSENT: calf tenderness, clubbing, pedal edema Neurological exam: PRESENT: alert, awake, oriented to person, oriented to place , oriented to time, oriented to situation. ABSENT: motor sensory deficit Psychiatric exam: PRESENT: appropriate affect, normal mood. ABSENT: homicidal ideation, suicidal ideation Skin exam: PRESENT: dry, intact, warm. ABSENT: cyanosis, rash Results Impressions: Chest X-Ray 03/09/18 11:55 IMPRESSION: Chronic or recurrent linear opacities at the left base. Head CT 03/09/18 11:55 IMPRESSION: NORMAL BRAIN CT WITHOUT CONTRAST. EVIDENCE OF ACUTE STROKE: NO. Assessment & Plan - Diagnosis (1) Vertigo Is this a current diagnosis for this admission?: Yes Plan: Etiology unclear. Patient might be dehydrated so we will cautiously hydrated with normal saline (2) Type 2 diabetes mellitus Is this a current diagnosis for this admission?: Yes Plan: Diet controlled. Will check her hemoglobin A1c and put her on sliding scale. (3) Hypothyroidism (acquired) Is this a current diagnosis for this admission?: Yes Plan: Continue her Synthroid. - Time Time Spent: 30 to 50 Minutes
[2018-03-09] MEDS ORDERED: LANSOPRAZOLE 30 MG TAB.RAP.DR PO ONE (17:00)
[2018-03-09] MEDS: NORMAL SALINE 1000 ML 1,000 ML IV PRN (18:24)
[2018-03-09] MEDS ORDERED: QUETIAPINE FUMARATE 25 MG TABLET PO SCH (22:00)
[2018-03-09] MEDS ORDERED: DIAZEPAM 5 MG TABLET PO PRN (22:20)
[2018-03-09] MEDS ORDERED: ATORVASTATIN CALCIUM 80 MG TABLET PO ONE (22:30)
[2018-03-10] MEDS ORDERED: LANSOPRAZOLE 30 MG TAB.RAP.DR PO SCH (06:00)
[2018-03-10] MEDS ORDERED: LEVOTHYROXINE SODIUM 0.025 MG TABLET PO SCH (06:00)
[2018-03-10] MEDS ORDERED: LEVOTHYROXINE SODIUM 0.05 MG TABLET PO SCH (06:00)
[2018-03-10] MEDS: NORMAL SALINE 1000 ML 1,000 ML IV PRN (06:48)
[2018-03-10 06:49] LABS: ANION GAP 8 (5-19); BLOOD UREA NITROGEN 21 mg/dL (7-20); CALCIUM 9.1 mg/dL (8.4-10.2); CARBON DIOXIDE 26 mmol/L (22-30); CHLORIDE 106 mmol/L (98-107); GLUCOSE 107 mg/dL (75-110); POTASSIUM 4.4 mmol/L (3.6-5.0); SODIUM 139.5 mmol/L (137-145)
--- NOTE | 2018-03-10 07:38 | EKG REPORT ---
SEVERITY:- ABNORMAL ECG - SINUS RHYTHM FIRST DEGREE AV BLOCK LEFT BUNDLE BRANCH BLOCK : Confirmed by: Lakshmi Fraser MD 10-Mar-2018 07:37:46
--- NOTE | 2018-03-10 07:38 | EKG REPORT ---
SEVERITY:- ABNORMAL ECG - SINUS RHYTHM FIRST DEGREE AV BLOCK LEFT BUNDLE BRANCH BLOCK : Confirmed by: Lakshmi Fraser MD 10-Mar-2018 07:37:40
[2018-03-10] MEDS ORDERED: ENOXAPARIN SODIUM INJ 30 MG/0.3 ML DISP.SYRIN SUBCUT SCH (10:00)
[2018-03-10] MEDS ORDERED: ATENOLOL 50 MG TABLET PO SCH (10:00)
[2018-03-10] MEDS ORDERED: HYDROCHLOROTHIAZIDE 12.5 MG CAPSULE PO SCH (10:00)
--- NOTE | 2018-03-10 15:04 | RADIOLOGY REPORT (SQ) ---
EXAM DESCRIPTION: MRI HEAD COMBO COMPLETED DATE/TIME: 03/10/2018 2:24 pm REASON FOR STUDY: stroke/Vertigo [id number] DIABETES WITH MILD NONP RTNOP WITH MACULAR EDEMA, B COMPARISON: CT brain 03/09/2018 TECHNIQUE: Multiplanar imaging includes noncontrasted T1, T2, FLAIR, diffusion with ADC map and post gadolinium contrast T1 sequences. Images stored on PACS. CONTRAST TYPE AND DOSE: 15 mL Prohance. RENAL FUNCTION: GFR > 60. LIMITATIONS: None. FINDINGS: ANATOMY: No anomalies. Normal vascular flow voids. Pituitary fossa normal. CSF SPACES: Normal in size and contour. No hemorrhage. CEREBRUM: Sulci and gyri normal in size and contour. Normal white matter signal on FLAIR imaging. No evidence of hemorrhage, mass, or extraaxial fluid collection. No abnormal enhancement post contrast. POSTERIOR FOSSA: No signal alteration. No hemorrhage. No edema, masses, or mass effect. Internal richard tory canals, cerebellopontine angles, mastoids normal. No enhancing lesions. No abnormal enhancement post contrast. DIFFUSION IMAGING: Negative for acute or subacute infarction. ORBITS: No masses. Globes post cataract surgery. PARANASAL SINUSES: No fluid levels. Mucosa normal. OTHER: No other significant finding. IMPRESSION: NORMAL MRI OF THE BRAIN WITHOUT AND WITH INTRAVENOUS GADOLINIUM CONTRAST. EVIDENCE OF ACUTE STROKE: NO. TECHNICAL DOCUMENTATION: JOB ID: [id number]- All Rights Reserved Reading location - IP/workstation name: [email or web address]
--- NOTE | 2018-03-10 16:11 | PDOC DISCHARGE SUMMARY ---
General - Admit/Disc Date/PCP Admission Date/Primary Care Provider: 03/09/18 15:53 TAMARA ROD MD Discharge Date: 03/10/18 - Discharge Diagnosis (1) Vertigo Is this a current diagnosis for this admission?: Yes (2) Type 2 diabetes mellitus Is this a current diagnosis for this admission?: Yes (3) Hypothyroidism (acquired) Is this a current diagnosis for this admission?: Yes - Additional Information Resuscitation Status: Full Code Home Medications: Bisoprolol/Hydrochlorothiazide [Bisoprolol-Hctz 5-6.25 mg Tab] 2 tab PO DAILY Diazepam [Valium 5 mg Tablet] 2.5 mg PO Q12HP PRN 03/09/18 Ergocalciferol (Vitamin D2) [Drisdol 50,000 unit (1.25MG) Capsule] 50,000 unit PO MO@1000 03/09/18 Eszopiclone [Lunesta] 3 mg PO HSP PRN 03/09/18 Hydrocodone/Acetaminophen [Hydrocodone-Acetamin 5-325 mg] 0.5 tab PO Q6HP PRN Latanoprost [Xalatan 0.005% Oph Soln 2.5 ml] 1 drop PO QHS 03/09/18 Levothyroxine Sodium [Synthroid] 62.5 mcg PO Q6AM 03/09/18 Lisinopril [Prinivil 40 mg Tablet] 40 mg PO QHS 03/09/18 Rosuvastatin Calcium [Crestor] 40 mg PO QHS 03/09/18 History of Present Illness History of Present Illness: NARA RIVERA is a 82 year old female patient who looks younger than her stated age presents with chief complaint of generalized body weakness, dizziness and low energy. She does not have any constitutional symptoms in the form of fever, chills, chest pain, palpitation, diaphoresis. She denies headache. Patient has chronic long-standing insomnia. 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 No orthopnea or paroxysmal nocturnal dyspnea. Her blood work is unremarkable except for mildly elevated troponin. Dr. Fraser consulted by ER attending and he does not feel patient has non-STEMI. Hospital Course Hospital Course: This is a 82 years old female patient who is in a good state of health up until yesterday when she started to have vertigo-like symptoms. Patient has been worked up with CT head and MRI of the brain with and without contrast both turn negative for acute acute intracranial process. Patient has been gently hydrated with normal saline. This morning I examined her while she is at the bedside she is awake alert oriented she is not in pain or distress. And she reports is she feels much better than yesterday. She has underlying chronic insomnia for which she has been taking Lunesta to no avail. I will start her with low-dose of Seroquel 50 mg p.o. nightly. Will continue the rest of her medication except the Lunesta. Patient advised to visit her primary care physician in 1 week. Physical Exam Vital Signs: Temp Pulse Resp BP Pulse Ox 97.3 F 60 12 107/64 98 03/10/18 11:12 03/10/18 14:00 03/10/18 11:12 03/10/18 11:12 03/10/18 11:12 Intake & Output 03/09/18 03/10/18 03/11/18 06:59 06:59 06:59 Intake Total 386 Output Total 2200 550 Balance -2200 -164 Weight 79.9 kg General appearance: PRESENT: no acute distress, well-developed, well-nourished Head exam: PRESENT: atraumatic, normocephalic Eye exam: PRESENT: conjunctiva pink, EOMI, PERRLA. ABSENT: scleral icterus Ear exam: PRESENT: normal external ear exam Mouth exam: PRESENT: moist, tongue midline Neck exam: ABSENT: carotid bruit, JVD, lymphadenopathy, thyromegaly Respiratory exam: PRESENT: clear to auscultation sidney. ABSENT: rales, rhonchi, wheezes Cardiovascular exam: PRESENT: RRR. ABSENT: diastolic murmur, rubs, systolic murmur Pulses: PRESENT: normal dorsalis pedis pul Vascular exam: PRESENT: normal capillary refill GI/Abdominal exam: PRESENT: normal bowel sounds, soft. ABSENT: distended, guarding, mass, organolmegaly, rebound, tenderness Rectal exam: PRESENT: deferred Extremities exam: PRESENT: full ROM. ABSENT: calf tenderness, clubbing, pedal edema Neurological exam: PRESENT: alert, awake, oriented to person, oriented to place , oriented to time, oriented to situation, CN II-XII grossly intact. ABSENT: motor sensory deficit Psychiatric exam: PRESENT: appropriate affect, normal mood. ABSENT: homicidal ideation, suicidal ideation Skin exam: PRESENT: dry, intact, warm. ABSENT: cyanosis, rash Results Laboratory Results: 03/10/18 06:09 03/10/18 03/10/18 03/10/18 04:03 04:03 06:09 Sodium Cancelled 139.5 Potassium Cancelled 4.4 Chloride Cancelled 106 Carbon Dioxide Cancelled 26 Anion Gap Cancelled 8 BUN Cancelled 21 H Creatinine Cancelled 0.88 Est GFR ( Amer) Cancelled > 60 Est GFR (Non-Af Amer) Cancelled > 60 Glucose Cancelled 107 Calcium Cancelled 9.1 TSH Cancelled 03/10/18 06:09 Sodium Potassium Chloride Carbon Dioxide Anion Gap BUN Creatinine Est GFR ( Amer) Est GFR (Non-Af Amer) Glucose Calcium TSH 2.88 Impressions: Chest X-Ray 03/09/18 11:55 IMPRESSION: Chronic or recurrent linear opacities at the left base. Head CT 03/09/18 11:55 IMPRESSION: NORMAL BRAIN CT WITHOUT CONTRAST. EVIDENCE OF ACUTE STROKE: NO. Head MRI 03/10/18 00:00 IMPRESSION: NORMAL MRI OF THE BRAIN WITHOUT AND WITH INTRAVENOUS GADOLINIUM CONTRAST. EVIDENCE OF ACUTE STROKE: NO. Qualifiers - * PATIENT BEING DISCHARGED WITH ANY OF THE FOLLOWING DIAGNOSIS: No
[2018-03-10 16:26] VITALS: BP 110/73
[2018-03-10] MEDS ORDERED: ATORVASTATIN CALCIUM 80 MG TABLET PO SCH (22:00)
[2018-03-11] MEDS ORDERED: LANSOPRAZOLE 30 MG TAB.RAP.DR PO SCH (06:00)
== END 2018-03-10 17:30 | disposition home or self-care (01) ==
LOC: ER 09:16 → EH 15:53 → 4N 17:18
PROVIDERS: ADMIT Internal Medicine; ATTEND Internal Medicine
DX: R42 Dizziness and giddiness (principal); E11.9 Type 2 diabetes mellitus without complications; E03.9 Hypothyroidism, unspecified; F51.04 Psychophysiologic insomnia; H35.30 Unspecified macular degeneration; H54.8 Legal blindness, as defined in USA; R79.89 Other specified abnormal findings of blood chemistry; R53.1 Weakness; R05 Cough; R51 Headache; R53.83 Other fatigue; I10 Essential (primary) hypertension; I44.7 Left bundle-branch block, unspecified; Z79.899 Other long term (current) drug therapy; Z90.49 Acquired absence of other specified parts of digestive tract; Z87.891 Personal history of nicotine dependence; Z82.49 Family history of ischemic heart disease and other diseases of the circulatory system
CPT/HCPCS: 93005; 99285; 96361; 96374; 36415 ×2; 82553; 82550; 84443 ×2; 85025; 80048; 80053; 81001; 84484; 83036; 70553; 71046; 70450; 93010; G0378 ×3; A9576; A9270 ×11; J0780; J1650; J7030 ×2; J7120